=== PATIENT | female | born 1955 | race Caucasian/White ===

== ENCOUNTER 2016-05-14 10:52 | Emergency (ER) | payer OTHER, MEDICARE ==
[~2016-05-14 10:52] MED LIST: ACET500CAP PO; ARANESP; AURYXIA210 MG PO; BACDS PO; COUMADIN3 MG PO; COUMADIN4 MG PO; D100 PO; DIALYVITE800 MG PO; DILANT PO; K500 PO; KEPPRA500 PO; LOP25 PO; OS500+D PO; PHOSLO PO; PROAIR HFA INH; PROVHFA INH; SINGULAIR1 PO; SLOW FE160 MG PO; SODBICAR10 PO; SYN.05 PO; VENTOLIN HFA INH; [UNRECOGNIZED DRUG - OTHER] PO
== END 2016-05-14 12:40 | disposition home or self-care (01) ==
LOC: ER 10:52
DX: S52.571A Other intraarticular fracture of lower end of right radius, initial encounter for closed fracture (principal); Z99.2 Dependence on renal dialysis; Z85.51 Personal history of malignant neoplasm of bladder; Z91.041 Radiographic dye allergy status; Z88.5 Allergy status to narcotic agent; Z88.6 Allergy status to analgesic agent; Z88.1 Allergy status to other antibiotic agents; Z88.8 Allergy status to other drugs, medicaments and biological substances; Z79.899 Other long term (current) drug therapy; W01.0XXA Fall on same level from slipping, tripping and stumbling without subsequent striking against object, initial encounter
CPT/HCPCS: 73090-RT; 73110-RT; 99284